=== PATIENT | male | born 1975 | race Caucasian/White ===

== ENCOUNTER → 2017-11-25 | Outpatient (CLI) | payer OTHER ==
[~2017-11-25] MED LIST: ATARAX25 MG PO; KEFLEX500 M1 PO; KEFLEX500 MG PO; NKHM; PREDNISONE20 MG PO; QUALITY CHOI500 U/GM T
[2017-11-25 17:29] LABS: HEMATOCRIT 43.2 % (42.0-52.0); HEMOGLOBIN 14.4 g/dl (14.0-18.0); MEAN CELL VOLUME 88.3 fl (80.0-94.0); MEAN CORPUSCULAR HGB 29.4 pg (27.0-31.0); MEAN CORPUSCULAR HGB CONC 33.3 g/dl (33.0-37.0); MEAN PLATELET VOLUME 9.5 fl (9.6-12.3); RED BLOOD COUNT 4.89 10*6/uL (4.50-5.90); RED CELL DISTRI WIDTH 12.5 % (0-14.5); WHITE BLOOD COUNT 4.8 10*3/uL (4.8-10.8)
[2017-11-25 17:37] LABS: ALKALINE PHOSPHATASE 87 U/L (45-117); BUN 11 mg/dl (7-24); CHLORIDE 105 mmol/L (98-107); CHOLESTEROL 163 mg/dL (<200); CREATININE 0.77 mg/dL (0.70-1.30); HDL CHOLESTEROL 58 mg/dl (40-60); LDL CHOLESTEROL 76 mg/dL (9-159); POTASSIUM 4.1 mmol/L (3.5-5.1); SGOT/AST 17 IU/L (3-35); SGPT/ALT 25 U/L (12-78); SODIUM 142 mmol/L (136-145); TOTAL PROTEIN 7.6 gm/dL (6.4-8.2); TRIGLYCERIDES 144 mg/dl (<150); VLDL CHOLESTEROL 29 mg/dL (6-40)
[2017-11-25 18:01] LABS: VITAMIN D, 25-HYDROXY 19.3 ng/mL (30-100)
== END | disposition home or self-care (01) ==
LOC: LAB 16:51
PROVIDERS: Family Medicine
DX: M25.521 Pain in right elbow (principal); E78.00 Pure hypercholesterolemia, unspecified; E55.9 Vitamin D deficiency, unspecified; R53.83 Other fatigue

== ENCOUNTER → 2018-01-14 | Outpatient (CLI) | payer OTHER ==
[2018-01-14 17:10] LABS: BASO % 0.3 % (0.0-1.0); EOS % 0.3 % (1.0-4.0); HEMATOCRIT 44.8 % (42.0-52.0); LYMPH # 1.5 10*3/uL (1.3-4.4); LYMPH % 22.2 % (27.0-41.0); MEAN CELL VOLUME 87.7 fl (80.0-94.0); MEAN CORPUSCULAR HGB 29.4 pg (27.0-31.0); MEAN CORPUSCULAR HGB CONC 33.5 g/dl (33.0-37.0); MEAN PLATELET VOLUME 9.6 fl (9.6-12.3); MONO # 0.4 10*3/uL (0.1-1.0); MONO % 5.8 % (3.0-9.0); NEUT # 4.7 10*3/uL (2.3-7.9); NEUT % 71.1 % (47.0-73.0); PLATELET COUNT AUTOMATED 240 10*3/uL (130-400); RED BLOOD COUNT 5.11 10*6/uL (4.50-5.90); RED CELL DISTRI WIDTH 12.2 % (0-14.5); WHITE BLOOD COUNT 6.6 10*3/uL (4.8-10.8)
[2018-01-14 17:20] LABS: URINE AMPHETAMINES < 1000 (1000ng/ml); URINE BARBITURATES < 200 (200ng/ml); URINE BENZODIAZEPINES < 200 (200ng/ml); URINE CANNABINOIDS (THC) < 50 (50ng/ml); URINE COCAINE < 300 (300ng/ml); URINE METHADONE < 300 (300ng/ml); URINE OPIATES < 300 (300ng/ml)
[2018-01-14 17:21] LABS: URINE PHENCYCLIDINE < 25 (25ng/ml)
[2018-01-14 17:28] LABS: ALBUMIN 4.1 gm/dl (3.1-4.5); ALKALINE PHOSPHATASE 72 U/L (45-117); BUN 13 mg/dl (7-24); CHLORIDE 105 mmol/L (98-107); CREATININE 0.93 mg/dL (0.70-1.30); SGOT/AST 13 IU/L (3-35); SGPT/ALT 21 U/L (12-78); SODIUM 142 mmol/L (136-145); TOTAL PROTEIN 7.8 gm/dL (6.4-8.2)
[2018-01-16 07:09] LABS: HEPATITIS B SURFACE AB 006395 Non Reactive (.); HEPATITIS B SURFACE AG Negative (Negative)
[2018-01-17 00:07] LABS: HEPATITIS C QNT HCV Not Detected IU/mL (.)
== END | disposition home or self-care (01) ==
LOC: LAB 15:58
PROVIDERS: Internal Medicine Gastroenterology
DX: B18.2 Chronic viral hepatitis C (principal)

== ENCOUNTER 2018-03-03 16:53 | Emergency (ER) | payer OTHER ==
[~2018-03-03] VITALS: Wt 79.4 kg
[2018-03-03] MEDS ORDERED: BUPREN/NALOX SUB 8-2 PO (16:55)
[2018-03-03] MEDS ORDERED: ROBAXIN500 M1 PO (18:46)
[2018-03-03] MEDS ORDERED: PREDNISONE20 M1 PO (18:46)
== END 2018-03-03 18:48 | disposition home or self-care (01) ==
LOC: ED 16:53
DX: M54.41 Lumbago with sciatica, right side (principal); Z79.899 Other long term (current) drug therapy

== ENCOUNTER 2018-08-01 21:11 | Emergency (ER) | payer OTHER ==
[~2018-08-01] VITALS: Wt 79.4 kg
[~2018-08-01 21:11] MED LIST changes: +BUPREN/NALOX SUB 8-2 PO; +PREDNISONE20 M1 PO; +ROBAXIN500 M1 PO
== END 2018-08-01 22:06 | disposition home or self-care (01) ==
LOC: ED 21:11
DX: F41.9 Anxiety disorder, unspecified (principal); Z79.899 Other long term (current) drug therapy

== ENCOUNTER → 2020-06-22 | Outpatient (CLI) | payer OTHER ==
[2020-06-22 12:33] LABS: BASO % 0.6 % (0.0-1.0); EOS # 0.1 10*3/uL (0.0-0.4); HEMATOCRIT 42.7 % (42.0-52.0); LYMPH # 1.5 10*3/uL (1.3-4.4); LYMPH % 28.8 % (27.0-41.0); MEAN CELL VOLUME 88.8 fl (80.0-94.0); MEAN CORPUSCULAR HGB 29.3 pg (27.0-31.0); MEAN PLATELET VOLUME 9.3 fl (9.6-12.3); MONO # 0.6 10*3/uL (0.1-1.0); MONO % 10.9 % (3.0-9.0); NEUT % 58.5 % (47.0-73.0); PLATELET COUNT AUTOMATED 264 10*3/uL (130-400); RED BLOOD COUNT 4.81 10*6/uL (4.50-5.90); RED CELL DISTRI WIDTH 12.3 % (0-14.5)
[2020-06-22 12:48] LABS: ALBUMIN 4.1 gm/dl (3.1-4.5); ALKALINE PHOSPHATASE 72 U/L (45-117); BUN 10 mg/dl (7-24); CHLORIDE 107 mmol/L (98-107); CHOLESTEROL 143 mg/dL (<200); CREATININE 0.79 mg/dL (0.70-1.30); LDL CHOLESTEROL 77 mg/dL (9-159); POTASSIUM 4.1 mmol/L (3.5-5.1); SGOT/AST 17 IU/L (3-35); SGPT/ALT 33 U/L (12-78); SODIUM 141 mmol/L (136-145); TOTAL PROTEIN 7.4 gm/dL (6.4-8.2); TRIGLYCERIDES 48 mg/dl (<150)
[2020-06-23 05:07] LABS: HEP B CORE AB, IGM Negative (Negative); HEPATITIS B SURFACE AG Negative (Negative); HEPATITIS C VIRUS ANTIBODY <0.1 s/co (0.0-0.9)
== END | disposition home or self-care (01) ==
LOC: LAB 12:08
PROVIDERS: ATTEND Nurse Practitioner Family
DX: Z13.220 Encounter for screening for lipoid disorders (principal); R53.83 Other fatigue; Z72.51 High risk heterosexual behavior

== ENCOUNTER → 2021-02-10 | Outpatient (CLI) | payer OTHER ==
[2021-02-13 15:06] LABS: RHEUMATOID ARTHRITIS FACTOR <10.0 IU/mL (<14.0)
== END ==
LOC: LAB 15:36
PROVIDERS: ATTEND Internal Medicine
DX: M25.511 Pain in right shoulder (principal); M25.561 Pain in right knee; M25.562 Pain in left knee; M25.512 Pain in left shoulder; M25.461 Effusion, right knee

== ENCOUNTER 2021-05-24 08:26 | Emergency (ER) | payer OTHER ==
[~2021-05-24] VITALS: Wt 79.4 kg
== END 2021-05-24 11:00 | disposition left against medical advice (07) ==
LOC: ED 08:26
DX: R11.2 Nausea with vomiting, unspecified (principal); Z53.21 Procedure and treatment not carried out due to patient leaving prior to being seen by health care provider

== ENCOUNTER 2021-05-31 16:21 | Emergency (ER) | payer OTHER ==
[~2021-05-31] VITALS: Ht 172.7 cm; Wt 79.4 kg
[2021-05-31 17:01] LABS: BASO % 0.8 % (0.0-1.0); EOS # 0.2 10*3/uL (0.0-0.4); EOS % 4.6 % (1.0-4.0); LYMPH # 1.1 10*3/uL (1.3-4.4); LYMPH % 22.7 % (27.0-41.0); MEAN CELL VOLUME 86.7 fl (80.0-94.0); MEAN CORPUSCULAR HGB 29.3 pg (27.0-31.0); MEAN CORPUSCULAR HGB CONC 33.8 g/dl (33.0-37.0); MONO # 0.6 10*3/uL (0.1-1.0); MONO % 11.6 % (3.0-9.0); NEUT % 60.1 % (47.0-73.0); PLATELET COUNT AUTOMATED 254 10*3/uL (130-400); RED BLOOD COUNT 5.19 10*6/uL (4.50-5.90)
[2021-05-31] MEDS ORDERED: GABAPENTIN800 MG PO (17:06)
[2021-05-31] MEDS ORDERED: ADDERALL 30 MG30 MG PO (17:06)
[2021-05-31 17:19] LABS: ALKALINE PHOSPHATASE 80 U/L (45-117); BUN 11 mg/dl (7-24); CHLORIDE 107 mmol/L (98-107); LIPASE 121 U/L (73-393); SGOT/AST 10 IU/L (3-35); SGPT/ALT 19 U/L (12-78); SODIUM 140 mmol/L (136-145); TOTAL PROTEIN 7.5 gm/dL (6.4-8.2)
[2021-05-31] MEDS ORDERED: ZOFRAN4 MG PO (18:58)
== END 2021-05-31 19:18 | disposition home or self-care (01) ==
LOC: ED 16:21
PROVIDERS: Physician Assistant
DX: R51.9 Headache, unspecified (principal); R11.10 Vomiting, unspecified

== ENCOUNTER 2021-08-12 23:04 | Emergency (ER) | payer OTHER ==
[~2021-08-12] VITALS: Ht 175.2 cm; Wt 79.4 kg
[~2021-08-12 23:04] MED LIST changes: +ADDERALL 30 MG30 MG PO; +GABAPENTIN800 MG PO; +ZOFRAN4 MG PO
== END 2021-08-13 00:04 | disposition home or self-care (01) ==
LOC: ED 23:04
DX: M79.672 Pain in left foot (principal)

== ENCOUNTER 2021-08-16 14:49 | Emergency (ER) | payer OTHER ==
[~2021-08-16] VITALS: Ht 175.2 cm; Wt 79.4 kg
[2021-08-16] MEDS ORDERED: ADDERALL 20 MG20 MG PO (18:18)
== END 2021-08-16 18:49 | disposition home or self-care (01) ==
LOC: ED 14:49
DX: M54.50 Low back pain, unspecified (principal)

== ENCOUNTER → 2022-04-17 | Outpatient (CLI) | payer OTHER ==
[~2022-04-17] MED LIST changes: +ADDERALL 20 MG20 MG PO
== END | disposition home or self-care (01) ==
LOC: RAD 14:22
PROVIDERS: ATTEND Internal Medicine
DX: M19.012 Primary osteoarthritis, left shoulder (principal); M19.011 Primary osteoarthritis, right shoulder

== ENCOUNTER → 2023-03-14 | Outpatient (CLI) | payer OTHER | END | disposition home or self-care (01) | LOC: RAD 11:36 | PROVIDERS: ATTEND Student in an Organized Health Care Education/Training Program | DX: M25.512 Pain in left shoulder (principal); M54.50 Low back pain, unspecified ==

== ENCOUNTER 2023-10-05 22:21 | Emergency (ER) | payer OTHER ==
[~2023-10-05] VITALS: Ht 172.7 cm; Wt 90.7 kg
[2023-10-05] MEDS ORDERED: Amoxicillin/Clavulanate Pota 875 MG TAB PO ONE ×3 (22:35→22:40)
[2023-10-05] MEDS ORDERED: Rabies Immune Globulin 300 UNIT/2 ML VIAL IM ONE ×2 (22:35→22:40)
[2023-10-05] MEDS ORDERED: AMOX-CLAV 875-1 EACH PO (22:36)
[2023-10-05] MEDS ORDERED: Bacitracin Zinc 14 GM TUBE T ONE (22:40)
[2023-10-05] MEDS ORDERED: Rabies Immune Globulin 150O UNIT/10 ML IM ONE (22:40)
== END 2023-10-05 23:21 | disposition home or self-care (01) ==
LOC: ED 22:21
DX: S81.852A Open bite, left lower leg, initial encounter (principal); F19.10 Other psychoactive substance abuse, uncomplicated; W54.0XXA Bitten by dog, initial encounter; Y93.01 Activity, walking, marching and hiking; Y92.89 Other specified places as the place of occurrence of the external cause; Y99.8 Other external cause status

== ENCOUNTER 2023-10-07 14:10 | Emergency (ER) | payer OTHER ==
[~2023-10-07] VITALS: Ht 170.1 cm; Wt 90.7 kg
[~2023-10-07 14:10] MED LIST changes: +AMOX-CLAV 875-1 EACH PO
[2023-10-07] MEDS ORDERED: BUSPAR5 MG PO (14:18)
[2023-10-07] MEDS ORDERED: MIRTAZAPINE30 M2 PO (14:18)
[2023-10-07] MEDS ORDERED: BUMETANIDE1 MG PO (14:18)
[2023-10-07] MEDS ORDERED: CITALOPRAM20 MG PO (14:18)
[2023-10-07] MEDS ORDERED: LORATADINE-D 11 EACH PO (14:18)
[2023-10-07] MEDS ORDERED: POTASSIUM CHLO20 ME4 PO (14:19)
[2023-10-07] MEDS ORDERED: FUROSEMIDE40 MG PO (14:19)
[2023-10-07] MEDS ORDERED: OMEPRAZOLE40 MG PO (14:19)
[2023-10-07] MEDS ORDERED: methylPREDNISolone sod succ 125 MG VIAL IM ONE (15:00)
== END 2023-10-07 16:38 | disposition home or self-care (01) ==
LOC: ED 14:10
DX: M79.642 Pain in left hand (principal); M79.645 Pain in left finger(s); M79.89 Other specified soft tissue disorders; F19.10 Other psychoactive substance abuse, uncomplicated

== ENCOUNTER → 2024-03-12 | Outpatient (CLI) | payer OTHER ==
[~2024-03-12] MED LIST changes: +BUMETANIDE1 MG PO; +BUSPAR5 MG PO; +CITALOPRAM20 MG PO; +FUROSEMIDE40 MG PO; +LORATADINE-D 11 EACH PO; +MIRTAZAPINE30 M2 PO; +OMEPRAZOLE40 MG PO; +POTASSIUM CHLO20 ME4 PO
== END | disposition home or self-care (01) ==
LOC: LAB 12:11
PROVIDERS: ATTEND Internal Medicine
DX: Z11.59 Encounter for screening for other viral diseases (principal)

== ENCOUNTER 2024-09-21 18:51 | Emergency (ER) | payer OTHER ==
[~2024-09-21] VITALS: Wt 79.4 kg
[2024-09-21 19:25] LABS: BASO # 0.0 10*3/uL (0.0-0.1); BASO % 0.5 % (0.0-1.0); EOS # 0.3 10*3/uL (0.0-0.4); EOS % 4.0 % (1.0-4.0); MEAN CELL VOLUME 89.3 fl (80.0-94.0); MEAN CORPUSCULAR HGB 29.0 pg (27.0-31.0); MEAN PLATELET VOLUME 8.6 fl (9.6-12.3); MONO # 0.7 10*3/uL (0.1-1.0); MONO % 10.7 % (3.0-9.0); NEUT # 3.5 10*3/uL (2.3-7.9); NEUT % 53.5 % (47.0-73.0); NUCLEATED RED BLOOD CELL 0.0 % (0.0-0.0); NUCLEATED RED BLOOD CELL 0.0 10*3/uL (0.0-0.0); PLATELET COUNT AUTOMATED 308 10*3/uL (130-400); RED CELL DISTRI WIDTH 13.6 % (0-14.5)
[2024-09-21 19:44] LABS: BUN 8 mg/dl (9-23)
[2024-09-21] MEDS ORDERED: CEPHALEXIN500 M1 PO (19:47)
[2024-09-21] MEDS ORDERED: CEPHALEXIN 500 MG 2 CAP ED PACK PO SCH (19:50)
[2024-09-21] MEDS ORDERED: POTASSIUM CHLORIDE 20 MEQ TAB PO ONE (19:50)
== END 2024-09-21 20:00 | disposition home or self-care (01) ==
LOC: ED 18:51
PROVIDERS: Nurse Practitioner Family
DX: L03.116 Cellulitis of left lower limb (principal)